=== PATIENT | male | born 1965 | race Caucasian/White ===

== ENCOUNTER 2021-10-20 18:16 | Inpatient (IN) | payer MEDICARE, OTHER ==
[~2021-10-20] VITALS: Ht 167.6 cm; Wt 71.7 kg
[~2021-10-20 18:16] MED LIST: CELEBREX 200MG200 MG PO; IMODIUM CAP 2 MG2 MG PO; LOMOTIL 2.5-0.1 EACH PO
[2021-10-20 18:56] LABS: HEMOGLOBIN 11.1 gm/dl (14.0-17.5); RED BLOOD COUNT 4.42 M/UL (4.20-5.50); WHITE BLOOD COUNT 2.7 K/UL (4.5-11.0)
[2021-10-20 19:53] LABS: BUN/CREATININE RATIO 15 (0-10)
[2021-10-21 06:44] LABS: HEMOGLOBIN 10.4 gm/dl (14.0-17.5); RED BLOOD COUNT 4.19 M/UL (4.20-5.50); WHITE BLOOD COUNT 2.4 K/UL (4.5-11.0)
[2021-10-21 07:18] LABS: BUN/CREATININE RATIO 18 (0-10)
[2021-10-21] MEDS ORDERED: LOPERAMIDE2 MG PO (10:50)
[2021-10-21] MEDS ORDERED: FERROUS GLUCON240 MG PO (10:52)
[2021-10-21] MEDS ORDERED: CEFDINIR300 MG PO (10:52)
[2021-10-21] MEDS ORDERED: DOXYCYCLINE HY100 MG PO (10:53)
--- NOTE | 2021-10-21 17:25 | NUR ---
1725- NOTIFED DR. MORLEY OF PT REQUESTING TO LEAVE AMA. STATES TO LET PT SIGN PAPERWORK.
--- NOTE | 2021-10-21 18:44 | NUR ---
184- NOTIFIED DR MORLEY OF PT REQUESTING TO STAY AND NOT LEAVE AMA. NO NEW ORDERS AT THIS TIME.
[2021-10-22 03:09] LABS: CANDIDA ALBICANS Not Detected (Negative); CANDIDA KRUSEI Not Detected (Negative); CANDIDA TROPICALIS Not Detected (Negative); ESCHERICHIA COLI Not Detected (Negative); HAEMOPHILUS INFLUENZAE Not Detected (Negative); KLEBSIELLA OXYTOCA Not Detected (Negative); KLEBSIELLA PNEUMONIAE Not Detected (Negative); KPC-CARBAPENEM-RESISTANCE GENE Not Detected (Negative); PROTEUS Not Detected (Negative); PSEUDOMONAS AERUGINOSA Not Detected (Negative); SERRATIA MARCESANS Not Detected (Negative); STAPHYLOCOCCUS AUREUS Not Detected (Negative); STREP AGALACTIAE (GROUP B) Not Detected (Negative); STREP PYOGENES (GROUP A) Not Detected (Negative); STREPTOCOCCUS Not Detected (Negative); vanA/B (VANCOMYCIN RESIST GENE Not Detected (Negative)
[2021-10-22 04:30] LABS: STAPHYLOCOCCUS DETECTED (Negative)
[2021-10-22 05:30] LABS: HEMOGLOBIN 10.3 gm/dl (14.0-17.5); RED BLOOD COUNT 4.04 M/UL (4.20-5.50); WHITE BLOOD COUNT 3.5 K/UL (4.5-11.0)
[2021-10-22 05:51] LABS: BUN/CREATININE RATIO 24 (0-10)
[2021-10-23 06:18] LABS: BUN/CREATININE RATIO 24 (0-10)
[2021-10-23] MEDS ORDERED: DECADRON6 MG PO (08:55)
[2021-10-23] MEDS ORDERED: CEFUROXIME500 MG PO (10:25)
[2021-10-23] MEDS ORDERED: LEVOFLOXACIN500 MG PO (11:20)
== END 2021-10-23 11:51 | disposition home or self-care (01) | DRG 177 ==
LOC: ER1 18:16 → MED SURG 4 21:37 → CDU 21:37 → MED SURG 4 22:43
PROVIDERS: Internal Medicine; Physician Assistant; ADMIT Internal Medicine
PROC: XW043E5 Introduction of Remdesivir Anti-infective into Central Vein, Percutaneous Approach, New Technology Group 5 (ICD-10-PCS; 2021-10-20)
PROC: B24BZZZ Ultrasonography of Heart with Aorta (ICD-10-PCS; principal; 2021-10-22)
DX: U07.1 COVID-19 (principal); J12.82 Pneumonia due to coronavirus disease 2019; J96.01 Acute respiratory failure with hypoxia; G11.11 Friedreich ataxia; I31.3 Pericardial effusion (noninflammatory); K52.9 Noninfective gastroenteritis and colitis, unspecified; R22.43 Localized swelling, mass and lump, lower limb, bilateral; D69.6 Thrombocytopenia, unspecified; I07.1 Rheumatic tricuspid insufficiency; Z90.49 Acquired absence of other specified parts of digestive tract; Z98.890 Other specified postprocedural states; Z83.2 Family history of diseases of the blood and blood-forming organs and certain disorders involving the immune mechanism
CPT/HCPCS: ECHO; 0240U; 36415; 36600; 71045; 80048; 80053; 80202; 81001; 82803; 83605; 83735; 83880; 84100; 85025; 85610; 85652; 85730; 86140; 87040; 87070; 87077; 87081; 87086; 87150; 87186; 87205; 93306; 93970; 96365; 96366; 96372; 96375; 99285; J0248; J0456; J0692; J0696; J1100; J1650; J1940; J3370; J7030; J7070; Q9967

== ENCOUNTER 2021-11-01 15:48 | Inpatient (IN) | payer MEDICARE, OTHER ==
[~2021-11-01] VITALS: Ht 167.6 cm; Wt 72.6 kg
[~2021-11-01 15:48] MED LIST changes: +CEFDINIR300 MG PO; +CEFUROXIME500 MG PO; +DECADRON6 MG PO; +DOXYCYCLINE HY100 MG PO; +FERROUS GLUCON240 MG PO; +LEVOFLOXACIN500 MG PO; +LOPERAMIDE2 MG PO
[2021-11-01 16:36] LABS: HEMOGLOBIN 10.3 gm/dl (14.0-17.5); RED BLOOD COUNT 4.12 M/UL (4.20-5.50); WHITE BLOOD COUNT 5.9 K/UL (4.5-11.0)
[2021-11-01 16:36] LABS: BORDETELLA PARAPERTUSSIS Not Detected (Not Detectd); BORDETELLA PERTUSSIS Not Detected (Not Detectd); CHLAMYDIA PNEUMONIAE Not Detected (Not Detectd); CORONAVIRUS HKU1 Not Detected (Not Detectd); CORONAVIRUS NL63 Not Detected (Not Detectd); CORONAVIRUS OC43 Not Detected (Not Detectd); CORONOAVIRUS 229E Not Detected (Not Detectd); HUMAN METAPNEUMOVIRUS Not Detected (Not Detectd); HUMAN RHINOVIRUS/ENTEROVIRUS Not Detected (Not Detectd); INFLUENZA A Not Detected (Not Detectd); INFLUENZA B Not Detected (Not Detectd); MYCOPLASMA PNEUMONIAE Not Detected (Not Detectd); PARAINFLUENZA VIRUS 1 Not Detected (Not Detectd); PARAINFLUENZA VIRUS 2 Not Detected (Not Detectd); PARAINFLUENZA VIRUS 3 Not Detected (Not Detectd); PARAINFLUENZA VIRUS 4 Not Detected (Not Detectd); RESPIRATORY SYNCYTIAL VIRUS Not Detected (Not Detectd)
[2021-11-01 17:07] LABS: BUN/CREATININE RATIO 26 (0-10)
[2021-11-01 17:46] LABS: SARS-CoV-2 DETECTED (Not Detectd)
[2021-11-02 07:01] LABS: HEMOGLOBIN 9.3 gm/dl (14.0-17.5); WHITE BLOOD COUNT 5.2 K/UL (4.5-11.0)
[2021-11-02 07:08] LABS: RED BLOOD COUNT 3.66 M/UL (4.20-5.50)
[2021-11-02 07:24] LABS: BUN/CREATININE RATIO 26 (0-10)
[2021-11-02] MEDS ORDERED: ASPIRIN EC81 MG PO (10:22)
[2021-11-03 02:02] LABS: CANDIDA ALBICANS Not Detected (Negative); CANDIDA KRUSEI Not Detected (Negative); CANDIDA TROPICALIS Not Detected (Negative); ESCHERICHIA COLI Not Detected (Negative); HAEMOPHILUS INFLUENZAE Not Detected (Negative); KLEBSIELLA OXYTOCA Not Detected (Negative); KLEBSIELLA PNEUMONIAE Not Detected (Negative); KPC-CARBAPENEM-RESISTANCE GENE Not Detected (Negative); PROTEUS Not Detected (Negative); PSEUDOMONAS AERUGINOSA Not Detected (Negative); SERRATIA MARCESANS Not Detected (Negative); STAPHYLOCOCCUS Not Detected (Negative); STAPHYLOCOCCUS AUREUS Not Detected (Negative); STREP AGALACTIAE (GROUP B) Not Detected (Negative); STREP PYOGENES (GROUP A) Not Detected (Negative); STREPTOCOCCUS Not Detected (Negative); vanA/B (VANCOMYCIN RESIST GENE Not Detected (Negative)
[2021-11-03 02:37] LABS: HEMOGLOBIN 8.2 gm/dl (14.0-17.5)
[2021-11-03 02:59] LABS: BUN/CREATININE RATIO 23 (0-10)
[2021-11-03 03:33] LABS: RED BLOOD COUNT 3.29 M/UL (4.20-5.50)
--- NOTE | 2021-11-03 13:11 | NUR ---
STUDENT NURSE WENT TO AID THE PT IN STANDING TO SIT IN THE CHAIR. UPON STANDING, PT STATES TO THE STUDENT NURSE "I'M FALLING". THE STUDENT NURSE AIDS THE PT TO SIT BACK ON THE BED AND PROCEEDING TO REQUEST ASSISTANCE FROM PRIMARY NURSE AND OTHER NURSES TO GET POSITIONED BACK IN BED.
[2021-11-03] MEDS ORDERED: MAGNESIUM CITR296 ML PO (16:12)
[2021-11-04] MEDS ORDERED: BUMETANIDE1 MG PO (17:16)
[2021-11-04] MEDS ORDERED: ASPIRIN EC81 MG PO (17:16)
[2021-11-04] MEDS ORDERED: MUCUS RELIEF600 MG PO (17:56)
== END 2021-11-03 13:42 | disposition home or self-care (01) | DRG 389 ==
LOC: ER1 15:48 → CDU 20:26 → M/S 20:26
PROVIDERS: Internal Medicine; Physician Assistant; Preventive Medicine Occupational Medicine; ADMIT Internal Medicine
DX: K56.7 Ileus, unspecified (principal); E87.1 Hypo-osmolality and hyponatremia; G11.11 Friedreich ataxia; J98.11 Atelectasis; K52.9 Noninfective gastroenteritis and colitis, unspecified; Z96.659 Presence of unspecified artificial knee joint; E87.6 Hypokalemia; E86.0 Dehydration; Z86.16 Personal history of COVID-19; Z87.01 Personal history of pneumonia (recurrent); Z90.49 Acquired absence of other specified parts of digestive tract; Z90.89 Acquired absence of other organs; Z98.890 Other specified postprocedural states; Z83.6 Family history of other diseases of the respiratory system; Z85.6 Personal history of leukemia; Z79.82 Long term (current) use of aspirin; Z79.899 Other long term (current) drug therapy
CPT/HCPCS: 36415; 36600; 71045; 74018; 80048; 80053; 80307; 81001; 82140; 82550; 82553; 82803; 83605; 83690; 83735; 83880; 84100; 84484; 85025; 85610; 85730; 86140; 87040; 87077; 87086; 87150; 87186; 87633; 93005; 97116; 97161; 99285; C9113; J0692; J1650; J3480; Q9967

== ENCOUNTER 2021-11-04 11:44 | Inpatient (IN) | payer MEDICARE, OTHER ==
[~2021-11-04] VITALS: Ht 167.6 cm; Wt 69.9 kg
[~2021-11-04 11:44] MED LIST changes: +ASPIRIN EC81 MG PO; +MAGNESIUM CITR296 ML PO
[2021-11-04 13:51] LABS: RED BLOOD COUNT 3.61 M/UL (4.20-5.50); WHITE BLOOD COUNT 5.7 K/UL (4.5-11.0)
[2021-11-04 14:13] LABS: BUN/CREATININE RATIO 27 (0-10)
[2021-11-04] MEDS ORDERED: ASPIRIN EC81 MG PO (17:16)
[2021-11-04] MEDS ORDERED: BUMETANIDE1 MG PO (17:16)
[2021-11-04] MEDS ORDERED: MUCUS RELIEF600 MG PO (17:56)
[2021-11-05 02:24] LABS: HEMOGLOBIN 7.6 gm/dl (14.0-17.5)
[2021-11-05 02:34] LABS: RED BLOOD COUNT 3.09 M/UL (4.20-5.50); WHITE BLOOD COUNT 3.4 K/UL (4.5-11.0)
[2021-11-05 02:38] LABS: BUN/CREATININE RATIO 27 (0-10)
[2021-11-06 01:54] LABS: HEMOGLOBIN 7.4 gm/dl (14.0-17.5); RED BLOOD COUNT 3.01 M/UL (4.20-5.50); WHITE BLOOD COUNT 3.4 K/UL (4.5-11.0)
[2021-11-06 02:21] LABS: BUN/CREATININE RATIO 23 (0-10)
--- NOTE | 2021-11-06 13:38 | NUR ---
GAVE REPORT TO [facility]. PT GOING FROM OR TO ICU FOR CLOSE MONITORING PER OR NURSESANGEETA. FAMILY NOTIFIED ALSO. PT BELONGINGS GATHERED. WAITING FOR PT SISTER TO ARRIVE TO RETRIEVE PT BELONGINGS.
[2021-11-07 04:35] LABS: HEMOGLOBIN 9.8 gm/dl (14.0-17.5); RED BLOOD COUNT 4.01 M/UL (4.20-5.50); WHITE BLOOD COUNT 5.2 K/UL (4.5-11.0)
[2021-11-07 04:50] LABS: BUN/CREATININE RATIO 24 (0-10)
[2021-11-08 05:10] LABS: BUN/CREATININE RATIO 14 (0-10)
[2021-11-08 06:22] LABS: HEMOGLOBIN 10.7 gm/dl (14.0-17.5); RED BLOOD COUNT 4.28 M/UL (4.20-5.50)
[2021-11-08 06:36] LABS: WHITE BLOOD COUNT 17.4 K/UL (4.5-11.0)
[2021-11-09 04:05] LABS: HEMOGLOBIN 9.7 gm/dl (14.0-17.5); RED BLOOD COUNT 3.93 M/UL (4.20-5.50); WHITE BLOOD COUNT 13.4 K/UL (4.5-11.0)
[2021-11-09 06:14] LABS: BUN/CREATININE RATIO 12 (0-10)
[2021-11-10 05:11] LABS: HEMOGLOBIN 9.2 gm/dl (14.0-17.5); RED BLOOD COUNT 3.73 M/UL (4.20-5.50); WHITE BLOOD COUNT 12.6 K/UL (4.5-11.0)
[2021-11-10 05:34] LABS: BUN/CREATININE RATIO 15 (0-10)
[2021-11-11 04:24] LABS: HEMOGLOBIN 7.9 gm/dl (14.0-17.5)
[2021-11-11 04:51] LABS: RED BLOOD COUNT 3.14 M/UL (4.20-5.50); WHITE BLOOD COUNT 5.4 K/UL (4.5-11.0)
[2021-11-11 04:56] LABS: BUN/CREATININE RATIO 29 (0-10)
[2021-11-12 19:18] LABS: BUN/CREATININE RATIO 59 (0-10)
[2021-11-13 04:38] LABS: HEMOGLOBIN 7.2 gm/dl (14.0-17.5); RED BLOOD COUNT 2.92 M/UL (4.20-5.50); WHITE BLOOD COUNT 5.9 K/UL (4.5-11.0)
[2021-11-13 04:57] LABS: BUN/CREATININE RATIO 51 (0-10)
[2021-11-14 05:22] LABS: RED BLOOD COUNT 2.81 M/UL (4.20-5.50)
[2021-11-14 05:51] LABS: WHITE BLOOD COUNT 3.6 K/UL (4.5-11.0)
[2021-11-14 07:39] LABS: BUN/CREATININE RATIO 45 (0-10)
[2021-11-15 04:13] LABS: HEMOGLOBIN 8.2 gm/dl (14.0-17.5)
[2021-11-15 04:20] LABS: RED BLOOD COUNT 3.25 M/UL (4.20-5.50)
[2021-11-15 04:28] LABS: BUN/CREATININE RATIO 35 (0-10)
[2021-11-16 05:12] LABS: HEMOGLOBIN 8.2 gm/dl (14.0-17.5); RED BLOOD COUNT 3.14 M/UL (4.20-5.50); WHITE BLOOD COUNT 4.5 K/UL (4.5-11.0)
[2021-11-16 05:33] LABS: BUN/CREATININE RATIO 42 (0-10)
[2021-11-16 16:34] LABS: BODY FLUID SOURCE PLEURAL; MONONUCLEAR CELLS 72.8 (75-100); RBC (AUTOMATED) 4900 (0-100000); WBC (AUTOMATED) 567 (0-500)
[2021-11-16 16:35] LABS: POLYMORPHONUCLEAR % 27.2 (0-25)
[2021-11-16 20:45] LABS: AMYLASE, BODY FLUID 8 U/L; LDH, BODY FLUID 82 U/L; TOTAL PROTEIN, BODY FLUID 1.3 gm/dL
[2021-11-17 04:59] LABS: HEMOGLOBIN 7.9 gm/dl (14.0-17.5); RED BLOOD COUNT 3.08 M/UL (4.20-5.50)
[2021-11-17 05:15] LABS: WHITE BLOOD COUNT 6.2 K/UL (4.5-11.0)
[2021-11-17 05:24] LABS: BUN/CREATININE RATIO 24 (0-10)
[2021-11-18 03:21] LABS: HEMOGLOBIN 7.8 gm/dl (14.0-17.5); RED BLOOD COUNT 3.2 M/UL (4.20-5.50); WHITE BLOOD COUNT 5.7 K/UL (4.5-11.0)
[2021-11-18 03:36] LABS: BUN/CREATININE RATIO 16 (0-10)
[2021-11-19 10:26] LABS: HEMOGLOBIN 8.7 gm/dl (14.0-17.5); RED BLOOD COUNT 3.44 M/UL (4.20-5.50)
[2021-11-19 10:57] LABS: BUN/CREATININE RATIO 18 (0-10)
[2021-11-20 01:41] LABS: HEMOGLOBIN 7.9 gm/dl (14.0-17.5); RED BLOOD COUNT 3.13 M/UL (4.20-5.50)
[2021-11-20 01:42] LABS: WHITE BLOOD COUNT 7.4 K/UL (4.5-11.0)
[2021-11-20 02:04] LABS: BUN/CREATININE RATIO 16 (0-10)
[2021-11-21 06:14] LABS: HEMOGLOBIN 8.1 gm/dl (14.0-17.5); RED BLOOD COUNT 3.2 M/UL (4.20-5.50)
[2021-11-21 06:40] LABS: BUN/CREATININE RATIO 11 (0-10)
[2021-11-22 02:07] LABS: HEMOGLOBIN 7.8 gm/dl (14.0-17.5); RED BLOOD COUNT 3.14 M/UL (4.20-5.50); WHITE BLOOD COUNT 5.6 K/UL (4.5-11.0)
[2021-11-22 02:25] LABS: BUN/CREATININE RATIO 11 (0-10)
[2021-11-23 02:07] LABS: HEMOGLOBIN 8.3 gm/dl (14.0-17.5); RED BLOOD COUNT 3.24 M/UL (4.20-5.50); WHITE BLOOD COUNT 8.2 K/UL (4.5-11.0)
[2021-11-23 02:33] LABS: BUN/CREATININE RATIO 18 (0-10)
[2021-11-24 05:50] LABS: HEMOGLOBIN 8.3 gm/dl (14.0-17.5); RED BLOOD COUNT 3.33 M/UL (4.20-5.50); WHITE BLOOD COUNT 9.3 K/UL (4.5-11.0)
[2021-11-24 10:00] LABS: BUN/CREATININE RATIO 18 (0-10)
[2021-11-25 03:02] LABS: HEMOGLOBIN 8.2 gm/dl (14.0-17.5); RED BLOOD COUNT 3.27 M/UL (4.20-5.50); WHITE BLOOD COUNT 7.7 K/UL (4.5-11.0)
[2021-11-25 03:36] LABS: BUN/CREATININE RATIO 20 (0-10)
[2021-11-25] MEDS ORDERED: PERCOCET 5/325 T1 EA PO (11:53)
[2021-11-25] MEDS ORDERED: FLOMAX 0.4 MG0.4 MG PO (11:53)
[2021-11-25] MEDS ORDERED: LOPRESSOR 25 MG25 MG PO (11:53)
[2021-11-25] MEDS ORDERED: IPRAT-ALBUT 0.5-3 ML NEB (11:53)
[2021-11-25] MEDS ORDERED: NYSTATIN60 GM TOP (11:53)
== END 2021-11-25 15:16 | DRG 329 ==
LOC: M/S 12:13 → CCU 12:13 → PROG CARE 12:13 → CCU 11-06 13:00 → PROG CARE 11-17 13:34
PROVIDERS: Internal Medicine; Internal Medicine Pulmonary Disease; ADMIT Internal Medicine
PROC: 3E043XZ Introduction of Vasopressor into Central Vein, Percutaneous Approach (ICD-10-PCS; principal; 2021-11-04)
PROC: 3E03329 Introduction of Other Anti-infective into Peripheral Vein, Percutaneous Approach (ICD-10-PCS; 2021-11-04)
PROC: 30233N1 Transfusion of Nonautologous Red Blood Cells into Peripheral Vein, Percutaneous Approach (ICD-10-PCS; 2021-11-06)
PROC: 0DTG0ZZ Resection of Left Large Intestine, Open Approach (ICD-10-PCS; 2021-11-06)
PROC: 0DJD8ZZ Inspection of Lower Intestinal Tract, Via Natural or Artificial Opening Endoscopic (ICD-10-PCS; 2021-11-06)
PROC: 0BH17EZ Insertion of Endotracheal Airway into Trachea, Via Natural or Artificial Opening (ICD-10-PCS; 2021-11-07)
PROC: 5A1945Z Respiratory Ventilation, 24-96 Consecutive Hours (ICD-10-PCS; 2021-11-07)
PROC: 5A0935A Assistance with Respiratory Ventilation, Less than 24 Consecutive Hours, High Flow/Velocity Cannula (ICD-10-PCS; 2021-11-09)
PROC: 5A09357 Assistance with Respiratory Ventilation, Less than 24 Consecutive Hours, Continuous Positive Airway Pressure (ICD-10-PCS; 2021-11-10)
PROC: 0DH67UZ Insertion of Feeding Device into Stomach, Via Natural or Artificial Opening (ICD-10-PCS; 2021-11-10)
PROC: 3E0G76Z Introduction of Nutritional Substance into Upper GI, Via Natural or Artificial Opening (ICD-10-PCS; 2021-11-10)
PROC: 5A09357 Assistance with Respiratory Ventilation, Less than 24 Consecutive Hours, Continuous Positive Airway Pressure (ICD-10-PCS; 2021-11-13)
PROC: 5A09357 Assistance with Respiratory Ventilation, Less than 24 Consecutive Hours, Continuous Positive Airway Pressure (ICD-10-PCS; 2021-11-13)
PROC: 5A09357 Assistance with Respiratory Ventilation, Less than 24 Consecutive Hours, Continuous Positive Airway Pressure (ICD-10-PCS; 2021-11-13)
PROC: 5A09357 Assistance with Respiratory Ventilation, Less than 24 Consecutive Hours, Continuous Positive Airway Pressure (ICD-10-PCS; 2021-11-16)
PROC: B24BZZZ Ultrasonography of Heart with Aorta (ICD-10-PCS; 2021-11-17)
PROC: 5A09357 Assistance with Respiratory Ventilation, Less than 24 Consecutive Hours, Continuous Positive Airway Pressure (ICD-10-PCS; 2021-11-17)
DX: K55.9 Vascular disorder of intestine, unspecified (principal); A41.52 Sepsis due to Pseudomonas; A41.89 Other specified sepsis; R65.21 Severe sepsis with septic shock; Z20.822 Contact with and (suspected) exposure to COVID-19; J96.21 Acute and chronic respiratory failure with hypoxia; G92.8 Other toxic encephalopathy; J15.1 Pneumonia due to Pseudomonas; A41.81 Sepsis due to Enterococcus; G11.11 Friedreich ataxia; I31.3 Pericardial effusion (noninflammatory); J90 Pleural effusion, not elsewhere classified; D62 Acute posthemorrhagic anemia; N39.0 Urinary tract infection, site not specified; E88.09 Other disorders of plasma-protein metabolism, not elsewhere classified; E87.6 Hypokalemia; R13.12 Dysphagia, oropharyngeal phase; E87.70 Fluid overload, unspecified; N40.1 Benign prostatic hyperplasia with lower urinary tract symptoms; R53.81 Other malaise; R74.01 Elevation of levels of liver transaminase levels; R33.9 Retention of urine, unspecified; D50.9 Iron deficiency anemia, unspecified; J04.0 Acute laryngitis; I48.0 Paroxysmal atrial fibrillation; Z80.6 Family history of leukemia; Z80.1 Family history of malignant neoplasm of trachea, bronchus and lung; Z87.01 Personal history of pneumonia (recurrent); Z79.01 Long term (current) use of anticoagulants; Z93.3 Colostomy status; Z90.49 Acquired absence of other specified parts of digestive tract; Z79.82 Long term (current) use of aspirin; Z99.81 Dependence on supplemental oxygen
CPT/HCPCS: ECHO; 36415; 36430; 36600; 71045; 71046; 74018; 74230; 76705; 80048; 80053; 80202; 81001; 82140; 82150; 82550; 82553; 82607; 82728; 82746; 82803; 82945; 82977; 83540; 83550; 83605; 83615; 83735; 83880; 83986; 84132; 84157; 84439; 84443; 84484; 85025; 85027; 85384; 85610; 85730; 86140; 86850; 86900; 86901; 86920; 87040; 87070; 87077; 87086; 87186; 87205; 88341; 88342; 89051; 92526; 92610; 92611-GN; 93005; 93306; 93970; 94002; 94003; 94640; 94660; 94664; 94668; 94760; 97110; 97110-GP-CQ; 97116; 97116-GP-CQ; 97161; 97166; 97530; 97530-GP-CQ; C1729; C9113; J0131; J0690; J0692; J0696; J1205; J1650; J1940; J1956; J2001; J2060; J2185; J2250; J2270; J2370; J2543; J2704; J2930; J3010; J3370; J3475; J3480; J7030; J7040; J7070; P9016; P9045; P9047; U0002

== ENCOUNTER → 2022-01-13 | Outpatient (CLI) | payer MEDICARE, OTHER ==
[~2022-01-13] MED LIST changes: +BUMETANIDE1 MG PO; +FLOMAX 0.4 MG0.4 MG PO; +IPRAT-ALBUT 0.5-3 ML NEB; +LOPRESSOR 25 MG25 MG PO; +MUCUS RELIEF600 MG PO; +NYSTATIN60 GM TOP; +PERCOCET 5/325 T1 EA PO
== END ==
LOC: RAD 10:00
DX: R13.10 Dysphagia, unspecified (principal)
CPT/HCPCS: 74230; 92611-GN